=== PATIENT | male | born 1960 | race Hispanic/Latino ===

== ENCOUNTER 2022-03-16 16:49 | Emergency (ER) | payer OTHER ==
[~2022-03-16 16:49] MED LIST: Iopamidol 370 76% 100 ML VIAL ONE
[2022-03-16 17:54] LABS: #Basophils 0.1 thou/uL (0.0-0.2); #Eosinphils 0.4 thou/uL (0.0-0.7); #Monocytes 0.9 thou/uL (0.11-0.59); #Neutrophils 8.2 thou/uL (1.40-6.50); %Eosinophils 2.9 % (0.0-10.0); %Lymphocytes 23.9 % (21.0-51.0); %Monocytes 6.9 % (0.0-10.0); %Neutrophils 65.4 % (42.0-75.0); Hemoglobin 12.3 g/dL (14.0-18.0); Mean Corpuscular HGB CONC 32.8 g/dL (32.0-36.0); Mean Corpuscular Hemoglobin 28.9 pg (27.0-31.0); Mean Corpuscular Volume 88.3 fl (78.0-98.0); Mean Platelet Volume 7.6 fL (7.4-10.4); Platelet Count 317 10x3/uL (130-400); RBC Distribution Width 11.9 % (11.5-14.5); Red Blood Cell (RBC) Count 4.25 mill/uL (4.70-6.10); White Blood Cell (WBC) Count 12.5 10x3/uL (4.8-10.8)
[2022-03-16 18:06] LABS: Albumin 3.5 g/dL (3.5-5.0); Bilirubin, Total 0.3 mg/dL (0.2-1.2); Calcium 8.9 mg/dL (7.8-10.44); Globulin 3.6 g/dL (2.4-3.5); Potassium 4.1 mmol/L (3.5-5.1); Protein, Total 7.1 g/dL (6.0-8.3)
[2022-03-16] MEDS ORDERED: Cefepime 2 GM VIAL ONE (18:18)
[2022-03-16] MEDS ORDERED: Sodium Chloride 0.9% 100 ML ONE (18:18)
[2022-03-16 18:31] LABS: Bilirubin Negative (Negative); Blood, Urine Negative (Negative); Clarity Clear (Clear); Glucose, Urine (Dipstick) >=1000 mg/dL (Negative); Ketone, Urine Negative (Negative); Leukocyte Negative (Negative); Nitrite Negative (Negative); Protein, Urine (Dipstick) Negative (Neg-Trace); Specific Gravity, Urine 1.015 (1.005-1.030); Urobilinogen 0.2 mg/dL (Less than 2)
[2022-03-16] MEDS ORDERED: Insulin Regular 300 UNITS/3 ML VIAL ONE (18:52)
[2022-03-16 20:36] LABS: Lactic Acid 1.5 mmol/L (0.5-2.2)
[2022-03-16] MEDS ORDERED: Sodium Chloride 0.9% 1,000 ML ONE (20:36)
[2022-03-16 20:59] LABS: SARS-CoV-2 NAA Rapid Test DETECTED (NotDetected)
[2022-03-16] MEDS ORDERED: Atorvastatin Calcium 40 MG TAB PO SCH (22:45)
[2022-03-16] MEDS ORDERED: metFORMIN 500 MG TAB PO SCH (22:45)
[2022-03-16] MEDS ORDERED: metFORMIN 500 MG TAB ONE (22:46)
[2022-03-17 00:10] LABS: Troponin I 0.036 ng/mL (< 0.028)
[2022-03-17] MEDS ORDERED: Vancomycin HCl 500 MG VIAL ONE (00:44)
[2022-03-17] MEDS ORDERED: Sodium Chloride 0.9% 500 ML ONE (00:44)
[2022-03-17] MEDS ORDERED: Vancomycin 1 GM VIAL ONE (00:44)
[2022-03-17] MEDS ORDERED: Cefepime 2 GM VIAL ONE (05:51)
[2022-03-17] MEDS ORDERED: Sodium Chloride 0.9% 100 ML ONE (05:51)
[2022-03-17 07:54] LABS: Troponin I 0.016 ng/mL (< 0.028)
[2022-03-17 08:01] LABS: Anion Gap 14 mmol/L (10-20); BUN (Urea Nitrogen) 12 mg/dL (8.4-25.7); Calc. Creatinine Clearance 0 mL/min (70-130); Calcium 8.1 mg/dL (7.8-10.44); Carbon Dioxide 20 mmol/L (22-29); Chloride 106 mmol/L (98-107); Estimated GFR 104; Glucose 197 mg/dL (70-105); Potassium 4.2 mmol/L (3.5-5.1); Sodium 136 mmol/L (136-145)
[2022-03-17 08:34] LABS: #Basophils 0.1 thou/uL (0.0-0.2); #Eosinphils 0.3 thou/uL (0.0-0.7); #Lymphocytes 2.6 thou/uL (1.20-3.40); #Monocytes 1.1 thou/uL (0.11-0.59); #Neutrophils 9.2 thou/uL (1.40-6.50); %Eosinophils 2.4 % (0.0-10.0); %Lymphocytes 19.6 % (21.0-51.0); %Monocytes 8.3 % (0.0-10.0); %Neutrophils 68.8 % (42.0-75.0); Hemoglobin 11.5 g/dL (14.0-18.0); Mean Corpuscular HGB CONC 32.6 g/dL (32.0-36.0); Mean Corpuscular Volume 88.9 fl (78.0-98.0); Mean Platelet Volume 7.3 fL (7.4-10.4); Platelet Count 323 10x3/uL (130-400); RBC Distribution Width 12.3 % (11.5-14.5); Red Blood Cell (RBC) Count 3.98 mill/uL (4.70-6.10); White Blood Cell (WBC) Count 13.4 10x3/uL (4.8-10.8)
== END 2022-03-17 11:45 | disposition short-term general hospital (02) ==
LOC: NAV ERS 16:49
DX: U07.1 COVID-19 (principal); R07.2 Precordial pain; L03.116 Cellulitis of left lower limb; M86.172 Other acute osteomyelitis, left ankle and foot; E11.42 Type 2 diabetes mellitus with diabetic polyneuropathy; I25.10 Atherosclerotic heart disease of native coronary artery without angina pectoris; E78.00 Pure hypercholesterolemia, unspecified; I10 Essential (primary) hypertension; M19.90 Unspecified osteoarthritis, unspecified site; Z79.4 Long term (current) use of insulin; Z87.891 Personal history of nicotine dependence; Z86.73 Personal history of transient ischemic attack (TIA), and cerebral infarction without residual deficits; Z79.82 Long term (current) use of aspirin; Z79.84 Long term (current) use of oral hypoglycemic drugs; Z79.899 Other long term (current) drug therapy
CPT/HCPCS: 36415; 36416; 71045; 71275; 80048; 80053; 81003; 83605; 84484; 85025; 85379; 87040; 93005; 96361; 96365; 96366; 96367; 96372; J0692; J1650; J1815; J3370; J3490; J7030; J7050; Q9967; U0002

== ENCOUNTER 2023-12-21 10:43 | Emergency (ER) | payer OTHER ==
[2023-12-21 11:29] LABS: #Basophils 0.1 thou/uL (0.0-0.2); #Eosinophils 0.1 thou/uL (0.0-0.7); #Lymphocytes 1.5 thou/uL (1.20-3.40); #Neutrophils 9.6 thou/uL (1.40-6.50); %Basophils 0.6 % (0.0-1.0); %Eosinophils 0.5 % (0.0-10.0); %Lymphocytes 11.9 % (21.0-51.0); %Monocytes 8.3 % (0.0-10.0); %Neutrophils 78.7 % (42.0-75.0); Hematocrit 39.4 % (42.0-52.0); Hemoglobin 12.7 g/dL (14.0-18.0); Mean Corpuscular HGB CONC 32.2 g/dL (32.0-36.0); Mean Corpuscular Hemoglobin 27.3 pg (27.0-31.0); Mean Corpuscular Volume 84.6 fl (78.0-98.0); Mean Platelet Volume 6.7 fL (7.4-10.4); Platelet Count 275 10x3/uL (130-400); RBC Distribution Width 14.1 % (11.5-14.5); Red Blood Cell (RBC) Count 4.66 mill/uL (4.70-6.10); White Blood Cell (WBC) Count 12.2 10x3/uL (4.8-10.8)
[2023-12-21] MEDS ORDERED: Vancomycin 1 GM VIAL ONE (11:35)
[2023-12-21] MEDS ORDERED: Sodium Chloride 0.9% 250 ML 500 ML ONE (11:36)
[2023-12-21] MEDS ORDERED: Sodium Chloride 0.9% 100 ML ONE (11:36)
[2023-12-21] MEDS ORDERED: Cefepime 2 GM VIAL ONE (11:36)
[2023-12-21 11:45] LABS: ALT (SGPT) 34 U/L (8-55); AST (SGOT) 31 U/L (5-34); Albumin 2.3 g/dL (3.4-4.8); Alkaline Phosphatase 213 U/L (40-110); Anion Gap 12 mmol/L (10-20); BUN (Urea Nitrogen) 13 mg/dL (8.4-25.7); Bilirubin, Total 0.9 mg/dL (0.2-1.2); Calc. Creatinine Clearance 0 mL/min (70-130); Calcium 8.6 mg/dL (7.8-10.44); Carbon Dioxide 23 mmol/L (23-31); Chloride 102 mmol/L (98-107); Estimated GFR 91; Globulin 6.3 g/dL (2.4-3.5); Glucose 147 mg/dL (80-115); Potassium 4.6 mmol/L (3.5-5.1); Protein, Total 8.6 g/dL (5.8-8.1); Sodium 132 mmol/L (136-145)
== END 2023-12-21 18:55 | disposition short-term general hospital (02) ==
LOC: NAV ERS 10:43
DX: E10.621 Type 1 diabetes mellitus with foot ulcer (principal); L97.513 Non-pressure chronic ulcer of other part of right foot with necrosis of muscle; I25.10 Atherosclerotic heart disease of native coronary artery without angina pectoris; E78.00 Pure hypercholesterolemia, unspecified; I10 Essential (primary) hypertension; Z87.891 Personal history of nicotine dependence; Z79.4 Long term (current) use of insulin; Z79.82 Long term (current) use of aspirin
CPT/HCPCS: 80053; 83605; 85025; 87040; 87077; 87186; 96365; 96366; 96367; J0692; J3370; J7050